=== PATIENT | male | born 1995 | race Caucasian/White ===

== ENCOUNTER 2017-09-20 21:48 | Emergency (ER) | payer BC ==
[2017-09-20] MEDS ORDERED: IPRATROPIUM/ALBUTEROL 3 ML DEYVIAL IH ONE (22:13)
[2017-09-20] MEDS ORDERED: NS 1,000 ML IV ONE (22:13)
--- NOTE | 2017-09-20 22:18 | EDPHY ---
H & P Stated Complaint: SOB and body aches Time Seen by Provider: 09/20/17 21:58 HPI/ROS: HPI The patient presents with shortness of breath, wheezing, cough, myalgias which have been present since about 8:30 a.m. This morning. The patient has a history of intermittent wheezing, however does not carry a diagnosis of asthma. He went to see fire works last night and he was exposed to a lot of smoke which he identifies as a trigger for his wheezing. Since this morning he is had shortness of breath, tightness in his chest, wheezing, dry cough. 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 He went to [facility] prior to arrival in the ED. There they performed 2 nebulizer treatments and gave him prednisone 40 mg. He did not significantly improve so they instructed him to come to the emergency department. He now feels better after receiving the nebulizer treatments, however wheezing cough continue. He has not had a fever. He does require achiness throughout his arms and legs and chest. He has not had any recent airplane travel, leg swelling. REVIEW OF SYSTEMS Constitutional: No fever, no chills. Eyes: No discharge. ENT: No sore throat. Cardiovascular: No chest pain, no palpitations. Respiratory: See HPI Gastrointestinal: No abdominal pain, no vomiting. Genitourinary: No hematuria. Musculoskeletal: No back pain. Skin: No rashes. Neurological: No headache. 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 PHYSICAL General Appearance: Alert, no distress Eyes: Pupils equal and round no pallor or injection ENT, Mouth: Mucous membranes moist Respiratory: Speaking full sentences, breathing comfortably, no retractions, inspiratory and expiratory wheezes are auscultated in all lung banegas with prolonged I to E time Cardiovascular: Regular rate and rhythm Gastrointestinal: Abdomen is soft and non-tender, no masses, bowel sounds normal Neurological: A&O, moves all extremities Skin: Warm and dry, no rashes Musculoskeletal: Neck is supple non tender Extremities: symmetrical, full range of motion Psychiatric: Patient is oriented X 3, there is no agitation Source: Patient Exam Limitations: No limitations - Personal History Current Tetanus/Diphtheria Vaccine: Yes Current Tetanus Diphtheria and Acellular Pertussis (TDAP): Yes - Medical/Surgical History Hx Asthma: No Hx Chronic Respiratory Disease: No Hx Diabetes: No Hx Cardiac Disease: No Hx Renal Disease: No Hx Cirrhosis: No Hx Alcoholism: No Hx HIV/AIDS: No Hx Splenectomy or Spleen Trauma: No Other PMH: tonsillectomy and addnoidectomy - Social History Smoking Status: Current some day smoker Constitutional: Initial Vital Signs Temperature (C) 37.3 C 09/20/17 21:50 Heart Rate 99 09/20/17 21:50 Respiratory Rate 18 09/20/17 21:50 Blood Pressure 139/72 H 09/20/17 21:50 O2 Sat (%) 95 09/20/17 21:50 O2 Delivery Mode Room Air Allergies/Adverse Reactions: No Known Allergies Allergy (Unverified 09/20/17 21:54) Home Medications: Medication Instructions Recorded Albuterol [Proventil Inhaler HFA 1 - 2 puffs IH Q4H #1 mdi 09/20/17 (*)] predniSONE [Prednisone] 40 mg PO DAILY 4 Days tablet 09/20/17 Medical Decision Making Differential Diagnosis: 21-year-old male presents with ongoing wheezing, cough for the last 1 day after being exposed to smoke at [employer]. Differential diagnosis includes asthma exacerbation, pneumonia, bronchitis. He had received prednisone prior to our assessment. He was started on a DuoNeb with improvement in his symptoms. His expiratory wheezes improved. Chest x- ray was performed and was unremarkable. Basic labs were also normal making infectious cause of his symptoms less likely. I feel he is likely suffering from asthma exacerbation from [employer] display. I plan to discharge him with an inhaler to use as needed. We will give him a course of prednisone. We have discussed strict return precautions. I have given him primary care follow-up information. He is happy with this plan and will be discharged. - Data Points Laboratory Results: Laboratory Results 09/20/17 22:36 09/20/17 22:36 Medications Given: Discontinued Medications Albuterol Sulfate (Proventil Inh Prepack) 1 mdi TAKEHOME EDNOW ONE Stop: 09/20/17 23:32 Last Admin: 09/20/17 23:44 Dose: 1 mdi Albuterol/Ipratropium (Duoneb) 3 ml IH EDNOW ONE Stop: 09/20/17 22:14 Last Admin: 09/20/17 22:34 Dose: 3 ml Sodium Chloride (Ns) 1,000 mls @ 0 mls/hr IV ONCE ONE; Wide Open PRN Reason: Protocol Stop: 09/20/17 22:14 Last Admin: 09/20/17 22:34 Dose: 1,000 mls Departure - Departure Disposition: Home, Routine, Self-Care Clinical Impression: Exacerbation of asthma Qualifiers: Asthma severity: moderate Asthma persistence: unspecified Qualified Code(s): J45.901 - Unspecified asthma with (acute) exacerbation Condition: Good Instructions: Albuterol (By breathing), Asthma (ED), Reactive Airways Disease ( ED) Additional Instructions: Please use the albuterol inhaler, 1-2 puffs every 2-4 hours as needed for shortness of breath. You should take the course of prednisone as well. I have listed the name of the primary care doctor on-call for the ER today. You can call him tomorrow for a follow-up appointment for next week. You should return to the emergency department if your worse in any way. Referrals: Raul Whittaker MD [Medical Doctor] - As per Instructions Prescriptions: Albuterol [Proventil Inhaler HFA (*)] 1 - 2 puffs IH Q4H #1 mdi predniSONE [Prednisone] 40 mg PO DAILY 4 Days tablet
[2017-09-20 22:54] LABS: PLATELET COUNT 206 10^3/uL (150-400)
[2017-09-20] MEDS ORDERED: ALBUTEROL INH PREPACK MDI TAKEHOME ONE (23:31)
[2017-09-21 00:01] VITALS: BP 96/52
== END 2017-09-20 23:49 | disposition home or self-care (01) ==
DX: J45.901 Unspecified asthma with (acute) exacerbation (principal); E86.9 Volume depletion, unspecified; F17.200 Nicotine dependence, unspecified, uncomplicated